=== PATIENT | female | born 1955 | race Caucasian/White ===

== ENCOUNTER → 2017-08-18 | Emergency (ER) | payer BC ==
[~2017-08-18] VITALS: Ht 157.5 cm; Wt 62.6 kg
[~2017-08-18] MED LIST: FLONASE ALLERG9.9 ML NASAL; LEXAPRO5 MG; MEDROLPACK PO
== END | disposition home or self-care (01) ==
LOC: ER 19:47
DX: J32.8 Other chronic sinusitis (principal)